=== PATIENT | female | born 1995 | race Caucasian/White ===

== ENCOUNTER 2018-04-29 03:49 | Emergency (ER) | payer OTHER ==
[2018-04-29 03:55] VITALS: BP 117/74; PULSE 82; TEMP 99.4; BMI 21.4
[2018-04-29] MEDS ORDERED: diphenhydrAMINE HCL 25 MG CAPSULE (FP) PO ONE ×2 (04:11→04:13)
--- NOTE | 2018-04-29 04:11 | PDOC ---
History of Present Illness - General Chief Complaint: Redness To Affected Area Stated Complaint: RT FOOT SWELLING Time Seen by Provider: 04/29/18 04:03 - History of Present Illness Initial Comments: 04/29/18 04:12 Chief complaint: Red foot History of present illness: 22 years old no significant past medical history presents to the emergency department with one-day history of swelling to right foot. Patient has multiple bug bites to her foot they've been itchy and she has been scratching him. Tonight she was out with her friends dancing wearing shoes when she took off her shoe on her right foot she noticed it to be more swollen. No fever no chills no streaking red lines slight redness and swelling to the top of the foot which is persistent constant no exacerbating or alleviating factors complaining of moderate discomfort. Past History - Past Medical History Allergies/Adverse Reactions: Allergies Allergy/AdvReac Type Severity Reaction Status Date / Time No Known Allergies Allergy Verified 10/12/14 11:40 Home Medications: Ambulatory Orders Cephalexin [Keflex] 500 mg PO QID #28 capsule 04/29/18 Norgestrel-Ethinyl Estradiol [Elinest] 1 each PO DAILY 04/29/18 COPD: No - Suicide/Smoking/Psychosocial Hx Smoking History: Never smoked Have you smoked in the past 12 months: No Hx Alcohol Use: No Substance Use Type: None Review of Systems - Review of Systems Comments:: 04/29/18 04:14 ROS: A complete review of 10 out of 10 review of systems is taken and is negative apart from what is previously mentioned below and in the HPI. *Physical Exam - Vital Signs Last Vital Signs Temp Pulse Resp BP Pulse Ox 99.4 F 82 16 117/74 100 04/29/18 03:52 04/29/18 03:52 04/29/18 03:52 04/29/18 03:52 04/29/18 03:52 - Physical Exam Comments: 04/29/18 04:14 Vitals: Triage Vital signs reviewed General Appearance: no acute distress, well nourished well developed, Head: Atraumatic, Extremities: Full range of motion to all extremities, no cyanosis, clubbing, Skin: Warm and dry, right foot with multiple bug bites with localized blanching erythema slightly swollen redness extends to mid dorsum of foot does not extend past ankle swelling no calf edema Neuro: Strength intact to all extremities, Sensation intact to all extremities, gait normal Psych: normal mood, normal affect Medical Decision Making - Medical Decision Making 04/29/18 04:17 History examination consistent with localized ALLERGIC reaction secondary to bug bite. Differential diagnosis includes early cellulitis At this time given one-day history and context of multiple bug bites worsened after she took her shoe off after dancing most likely this represents swelling and edema from ALLERGIC reaction from bug bite and less likely cellulitis We'll recommend rest ice Benadryl and close observation. Area of redness marked with surgical marker on foot. In case redness worsens or progresses despite conservative measures at this point I would become more suspicious for cellulitis This was discussed with patient. A prescription for Keflex was called into the patient's pharmacy in case the redness worsens in patient is more concern for infection as opposed to an ALLERGIC reaction Should the patient develop fever chills spreading redness streaking red lines she'll return to the emergency department immediately for further management. Findings, the need for follow-up, strict return instructions discussed with patient. *DC/Admit/Observation/Transfer Diagnosis at time of Disposition: Allergic reaction to insect bite - Discharge Dispostion Condition at time of disposition: Stable Decision to Admit order: No - Referrals Referrals: [facility] [place] [Provider Group] - Patient Instructions Printed Discharge Instructions: Insect Bites and Stings Additional Instructions: Rest, keep off foot as much as possible. Ice affected foot 20 minutes on 20 minutes off. Keep elevated as much as possible. Take 25 mg of Benadryl every 4- 6 hours for the next 2 days. If the redness and swelling does not improve or if any redness begins to spread a prescription for Keflex has been called into pharmacy take as prescribed. If he develops any fever chills significantly worsening redness significantly worsening swelling or any streaking red lines moving up to the leg return to emergency department as soon as possible. Otherwise follow-up with your doctor or the clinic next week. - Post Discharge Activity
== END 2018-04-29 04:23 | disposition home or self-care (01) ==
LOC: FER 03:49
DX: T78.49XA Other allergy, initial encounter (principal); X58.XXXA Exposure to other specified factors, initial encounter
CPT/HCPCS: 99281-25